=== PATIENT | female | born 1985 | race Caucasian/White ===

== ENCOUNTER → 2017-04-20 | Outpatient (CLI) | payer OTHER ==
[~2017-04-20] MED LIST: AMOXPOW3; PRENTAB26 PO
[2017-04-20 11:56] LABS: BASO % 0.3 %; BASO ABS # 0.02 K/uL (0-0.2); EOS % 1.1 %; EOS ABS # 0.08 K/uL (0-0.5); HEMATOCRIT 40.4 % (37-47); IG# 0.01 K/uL (0.00-0.02); LYMPH % 34.2 %; LYMPH ABS # 2.49 K/uL (1.2-3.4); MEAN CORPUSCULAR HEMOGLOBIN 31.5 pg (25-34); MEAN CORPUSCULAR HGB CONC 34.7 g/dl (32-36); MEAN PLATELET VOLUME 9.9 fL (7.4-10.4); MONO % 4.8 %; MONO ABS # 0.35 K/uL (0.11-0.59); NEUT % 59.5 %; NEUT ABS # 4.34 K/uL (1.4-6.5); PLATELET COUNT 268 K/uL (130-400); RED CELL DISTRIBUTION WIDTH CV 12.6 % (11.5-14.5); RED CELL DISTRIBUTION WIDTH SD 42.3 fL (36.4-46.3); WHITE BLOOD COUNT 7.29 K/uL (4.8-10.8)
[2017-04-20 12:22] LABS: ALBUMIN 4.1 gm/dl (3.4-5.0); ALT/SGPT 21 U/L (12-78); AST/SGOT 12 U/L (15-37); BLOOD UREA NITROGEN 6 mg/dl (7-18); CALCIUM 9.6 mg/dl (8.5-10.1); CARBON DIOXIDE 25 mmol/L (21-32); CREATININE 0.54 mg/dl (0.60-1.20); GLUCOSE 81 mg/dl (70-99); POTASSIUM 3.6 mmol/L (3.5-5.1); SODIUM 138 mmol/L (136-145)
[2017-04-20 12:24] LABS: ALKALINE PHOSPHATASE 52 U/L (45-117); TOTAL PROTEIN 7.6 gm/dl (6.4-8.2)
[2017-04-27 22:19] LABS: COMPLEMENT C4 TC 44982E 25 MG/DL (16-47); COMPLEMENT TOTAL(CH50)**45328P >60 U/mL (31-60)
== END | disposition home or self-care (01) ==
LOC: C.LAB1850 11:21
PROVIDERS: ATTEND Internal Medicine Pulmonary Disease
DX: L50.9 Urticaria, unspecified (principal)

== ENCOUNTER → 2017-10-05 | Outpatient (CLI) | payer OTHER ==
[2017-10-05 16:06] LABS: HEMATOCRIT 41.1 % (37-47); HEMOGLOBIN 14.4 g/dL (12.0-16.0); MEAN CELL VOLUME 89.7 fL (80-100); MEAN CORPUSCULAR HEMOGLOBIN 31.4 pg (25-34); PLATELET COUNT 212 K/uL (130-400); RED CELL DISTRIBUTION WIDTH CV 12.9 % (11.5-14.5); RED CELL DISTRIBUTION WIDTH SD 42.3 fL (36.4-46.3); WHITE BLOOD COUNT 3.36 K/uL (4.8-10.8)
[2017-10-05 16:40] LABS: ALBUMIN 4.1 gm/dl (3.4-5.0); ALKALINE PHOSPHATASE 78 U/L (45-117); ALT/SGPT 26 U/L (12-78); AST/SGOT 19 U/L (15-37); BLOOD UREA NITROGEN 5 mg/dl (7-18); CALCIUM 9.2 mg/dl (8.5-10.1); CARBON DIOXIDE 25 mmol/L (21-32); CREATININE 0.59 mg/dl (0.60-1.20); GLUCOSE 96 mg/dl (70-99); POTASSIUM 3.9 mmol/L (3.5-5.1); SODIUM 138 mmol/L (136-145); TOTAL PROTEIN 7.7 gm/dl (6.4-8.2)
[2017-10-05 16:46] LABS: MONOSPOT NEG (NEG)
[2017-10-10 15:47] LABS: EBV EARLY ANTIGEN AB < 9.00 U/ML
== END | disposition home or self-care (01) ==
LOC: C.LAB1850 15:33
PROVIDERS: ATTEND Physician Assistant
DX: R53.81 Other malaise (principal); R53.83 Other fatigue

== ENCOUNTER → 2017-10-20 | Outpatient (CLI) | payer OTHER ==
--- NOTE | 2017-10-20 08:49 | DIAGNOSTIC IMAGING REPORT ---
ABDOMEN LIMITED (US) HISTORY: Nodule. Pain. R19.09 Lump in the groinlump in right groin... concern for swoll. COMPARISON: None. FINDINGS: A reducible right inguinal fat-containing hernia. No evidence of bowel containment. IMPRESSION: Reducible right inguinal fat-containing hernia. No evidence of bowel containment. The above report was generated using voice recognition software. It may contain grammatical, syntax or spelling errors. Electronically signed by: Jitendra Malone M.D. 10/20/2017 8:48 AM Dictated Date/Time: 10/20/2017 8:43 AM
== END | disposition home or self-care (01) ==
LOC: C.ULTR 08:04
PROVIDERS: ATTEND Physician Assistant Medical
DX: K40.90 Unilateral inguinal hernia, without obstruction or gangrene, not specified as recurrent (principal)

== ENCOUNTER → 2017-11-01 | Outpatient (CLI) | payer OTHER ==
--- NOTE | 2017-11-01 10:01 | DIAGNOSTIC IMAGING REPORT ---
L-SPINE MIN 4 VIEWS ROUTINE CLINICAL HISTORY: Hip pain. Muscle tenderness. COMPARISON: None FINDINGS: Alignment of the lumbar spine is anatomic. Vertebral body heights are maintained. There is no fracture or suspicious lesion. Disc spaces are preserved. Facet joints are intact. IMPRESSION: Unremarkable lumbar spine radiographs. Electronically signed by: Scott Marina M.D. 11/01/2017 9:59 AM Dictated Date/Time: 11/01/2017 9:59 AM
--- NOTE | 2017-11-01 10:02 | DIAGNOSTIC IMAGING REPORT ---
SI JOINTS 3 OR MORE VIEWS CLINICAL HISTORY: Hip pain. Malaise. Fatigue. Sacroiliitis. COMPARISON STUDY: No previous studies for comparison. FINDINGS: The sacroiliac joints are intact without evidence for ankylosis. No erosions are identified. Joint spaces are preserved. IMPRESSION: Normal radiographic appearance of the sacroiliac joints. Electronically signed by: Scott Marina M.D. 11/01/2017 10:00 AM Dictated Date/Time: 11/01/2017 9:59 AM
[2017-11-04 00:32] LABS: ALDOLASE** TC 66985R 4.8 U/L (0.0-8.1)
== END | disposition home or self-care (01) ==
LOC: C.LAB1850 09:25
PROVIDERS: ATTEND Internal Medicine Rheumatology
DX: R53.81 Other malaise (principal); R53.83 Other fatigue; M79.1 Myalgia; M46.1 Sacroiliitis, not elsewhere classified

== ENCOUNTER → 2017-11-06 | Outpatient (CLI) | payer OTHER ==
--- NOTE | 2017-11-06 18:38 | DIAGNOSTIC IMAGING REPORT ---
SI JOINTS WITHOUT HISTORY: 32 years-old Female MALAISE, FATIGUE, MUSCLE TENDERNESS, SACROILIITIS acute fatigue with muscle tenderness COMPARISON: SI joint radiographs 11/01/2017 TECHNIQUE: Multiplanar multisequence MRI of the SI joints was obtained without the use of IV contrast. FINDINGS: No focal bone marrow edema, acute fracture, subluxation, marrow replacing process or significant degenerative changes. Normal appearance of the bilateral sacroiliac joints without degenerative changes or evidence of sacroiliitis. Imaged lower lumbar spine also appears normal. Imaged bilateral sacroiliac joints appear to be within normal limits. Imaged pelvic musculature morphology and signal appears to be within normal limits. Bladder, uterus and pelvic structures appear unremarkable. No gross abnormality identified on the large [id number] showroom manager localizer images. Follicular changes about the ovaries. Iliac vasculature appears unremarkable. No adenopathy. IMPRESSION: Unremarkable MRI of the bilateral sacroiliac joints without evidence of acute sacroiliitis. The above report was generated using voice recognition software. It may contain grammatical, syntax or spelling errors. Electronically signed by: Alex Vogel M.D. 11/06/2017 6:37 PM Dictated Date/Time: 11/06/2017 6:32 PM
== END | disposition home or self-care (01) ==
LOC: C.MRI 17:37
PROVIDERS: ATTEND Internal Medicine Rheumatology
DX: M46.1 Sacroiliitis, not elsewhere classified (principal); M47.819 Spondylosis without myelopathy or radiculopathy, site unspecified; M79.1 Myalgia; R53.81 Other malaise; R53.83 Other fatigue

== ENCOUNTER 2021-11-09 16:20 | Inpatient (IN) ==
[2021-11-09] MEDS ORDERED: OXYTOCIN 30 UNITS/500 ML BAG IV PRN ×2 (16:42→16:43)
[2021-11-09] MEDS ORDERED: LIDOCAINE 1% LOCAL 20 ML VIAL INFIL PRN (16:42)
[2021-11-09 17:08] LABS: Hematocrit (blood only) 33.5 % (34.1-44.9); Hemoglobin 11.6 g/dl (12.0-16.0); Mean Corpuscular Hemoglobin 32.2 pg (25.0-34.0); Mean Corpuscular Hgb Conc 34.6 g/dL (32.0-36.0); Mean Corpuscular Volume 93.1 fL (80.0-100.0); Mean Platelet Volume 10.4 fL (9.4-12.3); Platelet Count 216 K/uL (130-400); RDW Coefficient of Variation 14.1 % (11.5-14.5); RDW Standard Deviation 47.8 fL (36.4-46.3); White Blood Count 8.77 K/ul (4.8-10.8)
[2021-11-09 17:19] LABS: Creatinine Urine Random 17.3 mg/dl; Protein Creatinine Ratio Urine 9.6 (0-0.2); Total Protein Urine Random 166.2 mg/dl (0-11.9)
[2021-11-09 17:27] LABS: Alanine Aminotransferase 8 U/L (7-52); Albumin Level 2.8 gm/dl (3.4-5.0); Alkaline Phosphatase 84 U/L (34-104); Anion Gap 7 (3-11); Aspartate Aminotransferase 11 U/L (13-39); BUN Creatinine Ratio 11.1 (10-20); Bilirubin,Total 0.2 mg/dl (0.2-1.0); Blood Urea Nitrogen 5 mg/dl (6-23); Calcium 8.7 mg/dl (8.5-10.1); Carbon Dioxide 22 mmol/L (21-32); Chloride 107 mmol/L (98-107); Creatinine Clr Calc Pharmacy 182.9 ml/min; Est GFR (African American) > 150.0 ml/min; Est GFR (Non-African American) 129.8 ml/min; Globulin 2.9 gm/dl (2.5-4.0); Glucose 75 mg/dl (70-99(Fasting)); Potassium 3.6 mmol/L (3.5-5.1); Sodium 136 mmol/L (136-145); Total Protein 5.7 gm/dl (6.0-8.3)
--- NOTE | 2021-11-09 18:16 | History & Physical Report ---
Date of Service November 09, 2021 Assessment & Plan (1) Preeclampsia: Plan: Reviewed BPs and labs with patient - given proteinuria and elevated BPs at a 37+wk gestation, recommend proceed with delivery at this time. Patient is agreeable with this plan. At this time, BPs and labs are not in severe range that would require magnesium, but will plan to continue to closely monitor BP and recheck preeclampsia labs in the morning. Will plan for cervical [place] for cervix ripening and pitocin for induction of labor. She plans for an epidural at some point during labor. Admission and Anticipated Discharge Date Admission Date: November 09, 2021 History of Present Illness Chief Complaint: elevated BP at office Primary Care Provider: NO PCP 36yo @ 37 05/17, presented to office today for LE edema. Office urine protein dip 4+ (had been 2+ previously in this ), and BPs 150s/90s. She was also reporting decreased movement, and had stated she needed to push on her belly to get the baby to move. She was directed to L&D. She denies severe headache, vision changes, N/V, RUQ pain. Has had a cough for about a week, other family members have been sick also, states last week home COVID test was negative. No leaking fluid, vaginal bleeding. Feeling some ctx. +FM now. Allergies Allergy/AdvReac Type Severity Reaction Status Date / Time iodine Allergy Severe Hives Verified 11/09/21 18:03 shrimp Allergy Severe Hives Verified 11/09/21 18:03 Home Medications Medication Instructions Recorded Confirmed Type acetone (urine) test (Ketone Urine #50 ea 04/26/21 11/09/21 Rx Test strips) blood sugar diagnostic (OneTouch #150 ea 04/26/21 11/09/21 Rx Verio test strips) blood-glucose meter (OneTouch #1 ea 04/26/21 11/09/21 Rx Verio Reflect Meter) lancets 33 gauge (OneTouch Delica #150 ea 04/26/21 11/09/21 Rx Plus Lancet) Patient History Medical History (Updated 11/09/21 @ 18:21 by Benita Herrera DO) ADD (attention deficit disorder) Anxiety Attention deficit disorder (ADD) Breast lump in female Depression Depression Facial neuralgia H/O depression, currently Hyperhidrosis Hypermobility arthralgia Mechanical low back pain Right groin hernia Right inguinal hernia Sacroiliitis Unilateral recurrent inguinal hernia without obstruction or gangrene Urticaria Surgical History H/O hernia repair H/O retained foreign body fully removed FROM A FINGER WITH GENERAL OR MAC ANESTHESIA H/O wisdom tooth extraction Family History (Updated 04/07/21 @ 11:04 by Mackenzie TURK RN) Grandmother Family history of diabetes mellitus Myocardial infarction Family/Other Ovarian cancer maternal great grandmother Mother Graves disease High cholesterol Fatty liver disease, nonalcoholic Gestational diabetes Sister Autoimmune disease Other Diabetes Denies family history of Prostate cancer Breast cancer Colorectal cancer Social History Smoking Status: Current every day smoker Tobacco Type: Cigarettes Age Started Using Tobacco: 19; Cigarettes Per Day: 10; Second Hand Exposure: No; Hx Alcohol Use: No Hx Substance Use: No Preferred Language: Bhutanese Communication Ability: Effective Design Sales Consultant Required: No Beliefs That Will Affect Care: None marital status: Legally marital status details: PAUL Cortes (28) [phone] Current Living Situation: Significant Other Current Living Situation Comment: FOB and 3 children. 1 dog. 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 Will re-attempt with placement of houston. Constitutional: WD/WN, vitals as above Respiratory: normal respiratory effort, lungs clear to auscultation no respiratory distress Cardiovascular: Rate/Rhythm: regular rate and regular rhythm Gastrointestinal (Abdomen): Inspection/Auscultation: abdomen normal to inspection Percussion/Palpation: abdomen soft; abdomen nontender Gravid. No s/s chorio or abruption. Skin: no rashes, warm and dry Psychiatric: A+Ox3, euthymic affect Lymphatic: 1+ arthur LE edema Results & Data ([facility]) Vital Signs (Past 12 Hours) Vital Signs Temp Pulse Resp BP Pulse Ox 11/09/21 18:05 87 135/79 11/09/21 17:34 98 H 99 11/09/21 17:29 89 100 11/09/21 17:24 78 100 11/09/21 17:19 82 100 11/09/21 17:11 80 100 11/09/21 17:06 79 100 11/09/21 17:07 77 147/67 H 11/09/21 17:01 78 100 11/09/21 16:20 20 11/09/21 16:20 36.8 C 80 20 119/90 11/09/21 16:56 75 100 11/09/21 16:53 82 146/68 H 11/09/21 16:51 80 100 11/09/21 16:46 85 100 11/09/21 16:41 85 99 11/09/21 16:36 82 99 11/09/21 16:37 79 155/74 H Coding Level of Care Code None Diagnoses Preeclampsia O14.90
[2021-11-09] MEDS: LACTATED RINGER'S 1,000 ML IV PRN (19:58)
--- NOTE | 2021-11-09 20:11 | Labor Progress Brief Note ---
Date of Service November 09, 2021 Subjective [place] bulb placed, tolerated well. 35cc sterile water. FHT Cat 1, occ ctx. Cervix exam still difficult d/t patient's significant discomfort - she is requesting no further cervix exams until after epidural. Suspect cervix is approx /-3. Starting pitocin with [place]. Patient agreeable. Assessment & Plan Admission and Anticipated Discharge Date Admission Date: November 09, 2021 Results & Data ([facility]) Vital Signs (Past 12 Hours) Vital Signs Temp Pulse Resp BP Pulse Ox 11/09/21 19:59 81 135/64 11/09/21 19:09 20 11/09/21 19:09 36.7 C 20 11/09/21 19:08 82 130/65 11/09/21 18:05 87 135/79 11/09/21 17:34 98 H 99 11/09/21 17:29 89 100 11/09/21 17:24 78 100 11/09/21 17:19 82 100 11/09/21 17:11 80 100 11/09/21 17:06 79 100 11/09/21 17:07 77 147/67 H 11/09/21 17:01 78 100 11/09/21 16:20 20 11/09/21 16:20 36.8 C 80 20 119/90 11/09/21 16:56 75 100 11/09/21 16:53 82 146/68 H 11/09/21 16:51 80 100 11/09/21 16:46 85 100 11/09/21 16:41 85 99 11/09/21 16:36 82 99 11/09/21 16:37 79 155/74 H Coding Level of Care Code None
[2021-11-09] MEDS ORDERED: ePHEDrine sulfate 50 MG/ML AMP ONE (21:03)
[2021-11-09] MEDS ORDERED: LIDOCAINE 2%/EPINEPHRINE 1:200,000 20 ML SDV ONE (21:04)
[2021-11-09] MEDS ORDERED: fentaNYL 2MCG/ML ROPIVACAINE 1.25MG/ML 100 ML BAG EPI ONE (21:04)
[2021-11-09] MEDS ORDERED: fentaNYL citrate 100 MCG/2 ML VIAL ONE (21:04)
[2021-11-09] MEDS ORDERED: SODIUM CHLORIDE 0.9% INJ 10 ML VIAL ONE (21:04)
[2021-11-09] MEDS ORDERED: BUPIVACAINE 0.25% 30 ML VIAL ONE ×2 (21:04→23:40)
--- NOTE | 2021-11-09 21:39 | Anesthesiology Consultation ---
Date of Service November 09, 2021 Assessment & Plan (1) Encounter for pre-operative examination: Chart Review Chart Review: Acceptable Risk for Labor Epidural Consults Requested none ASA ASA2 Proposed Anesthesia Anesthesia Type: Labor Epidural Risk / Benefits Reviewed With: PT / POA / Parent / Guardian, Accepts Plan and Informed Consent Obtained History Height/Weight Height: 5 ft 4 in Weight: 83.915 kg Allergies Allergy/AdvReac Type Severity Reaction Status Date / Time iodine Allergy Severe Hives Verified 11/09/21 18:03 shrimp Allergy Severe Hives Verified 11/09/21 18:03 Medications Home Medications Medication Instructions Recorded Confirmed Last Taken acetone (urine) test (Ketone Urine #50 ea 04/26/21 11/09/21 Unknown Test strips) blood sugar diagnostic (OneTouch #150 ea 04/26/21 11/09/21 Unknown Verio test strips) blood-glucose meter (OneTouch #1 ea 04/26/21 11/09/21 Unknown Verio Reflect Meter) lancets 33 gauge (OneTouch Delica #150 ea 04/26/21 11/09/21 Unknown Plus Lancet) Active Medications Generic Name Dose Route Start Last Admin Trade Name Freq PRN Reason Stop Dose Admin Oxytocin 30 units in 500 mls @ 5 mls/hr 11/09/21 16:43 11/09/21 21:00 Pitocin IV 11/11/21 16:42 0.3 units/hr .Q24H PRN 5 mls/hr Labor Induction/Augmentation Titration Protocol 0.3 UNITS/HR Lactated Ringer's 1,000 mls @ 125 mls/hr 11/09/21 16:42 11/09/21 21:25 Lr IV 11/11/21 16:41 125 mls/hr .Q8H PRN Infusion L&D Protocol Protocol Past Medical History Medical History ADD (attention deficit disorder) Anxiety Attention deficit disorder (ADD) Breast lump in female Depression Depression Facial neuralgia H/O depression, currently Hyperhidrosis Hypermobility arthralgia Mechanical low back pain Right groin hernia Right inguinal hernia Sacroiliitis Unilateral recurrent inguinal hernia without obstruction or gangrene Urticaria Exercise / Class Metabolic Activity II 4-5 Yardwork/Stairs/Walk up hill Past Family History Family History Grandmother Family history of diabetes mellitus Myocardial infarction Family/Other Ovarian cancer maternal great grandmother Mother Graves disease High cholesterol Fatty liver disease, nonalcoholic Gestational diabetes Sister Autoimmune disease Other Diabetes Denies family history of Prostate cancer Breast cancer Colorectal cancer Past Surgical History Surgical History H/O hernia repair H/O retained foreign body fully removed FROM A FINGER WITH GENERAL OR MAC ANESTHESIA H/O wisdom tooth extraction Past Anesthesia History No Hx of Anesthesia Complications and No Family Hx of Anesthesia Complications History of PONV No Hx of PONV and No Hx of Motion Sickness Social History Smoking Status: Current every day smoker tobacco type: cigarettes Smoking cigarettes per day: 10 Hx Alcohol Use: No Hx Substance Use: No substance use type: does not use Physical Exam Vital Signs Last Vital Signs Temp 98.1 F 11/09/21 19:09 Pulse 81 11/09/21 21:01 Resp 20 11/09/21 19:09 BP 145/77 H 11/09/21 21:01 Pulse Ox 99 11/09/21 17:34 ENMT Mouth: no dentition abnormality Thyromental Distance: > or= 3.5 Finger Breadths Mallampati Class: II Neck normal visual inspection Respiratory normal respiratory effort Auscultation: lungs clear to auscultation bilaterally Cardiovascular Rate/Rhythm: regular rate and regular rhythm Testing Laboratory Results 11/09/21 16:58 11/09/21 16:58 Blood Type A Positive 11/09/21 16:58 Antibody Screen NEGATIVE 11/09/21 16:58
[2021-11-09] MEDS ORDERED: NALOXONE HCL 0.4 MG/1 ML VIAL/CARP IV PRN (22:02)
[2021-11-09] MEDS ORDERED: diphenhydrAMINE 50 MG/ML VIAL IV PRN (22:02)
[2021-11-09] MEDS ORDERED: ONDANSETRON INJ 2 MG/ML 2 ML VIAL IV PRN (22:02)
[2021-11-09] MEDS ORDERED: NALOXONE HCL 1 MG in SODIUM CHLORIDE 0.9% 1000ML 1,000 ML IV PRN (22:02)
[2021-11-09] MEDS ORDERED: ePHEDrine sulfate 50 MG/ML AMP IV PRN (22:02)
[2021-11-09] MEDS ORDERED: NALBUPHINE HCL INJ 10 MG/ML AMP IV PRN (22:02)
--- NOTE | 2021-11-10 00:03 | Communication Note ---
Date of Service: November 10, 2021 Patient stated having more labor paiins R>L. Epidural was withdrawn 1 cm, and the epidural was bolused with 3 mL of 0.25% bupivacaine. The patient stated h aving improved labor pains. VSS throughout.
--- NOTE | 2021-11-10 00:13 | Labor Progress Brief Note ---
Date of Service November 10, 2021 Subjective Comfortable with epidural. FHT Cat 1 [place] Q 2-3 Pitocin at 17 Cervix 4/70/-2 AROM clear fluid. Continue labor. Anticipate . Assessment & Plan Admission and Anticipated Discharge Date Admission Date: November 09, 2021 Results & Data ([facility]) Vital Signs (Past 12 Hours) Vital Signs Temp Pulse Resp BP Pulse Ox 11/10/21 00:10 98 H 98 11/10/21 00:05 91 H 98 11/10/21 00:00 98 11/10/21 00:00 86 11/10/21 00:00 87 122/60 11/09/21 23:58 87 134/61 11/09/21 23:55 90 98 11/09/21 23:56 89 139/65 11/09/21 23:54 81 129/60 11/09/21 23:52 85 134/62 11/09/21 23:50 89 129/60 98 11/09/21 23:45 90 98 11/09/21 23:44 88 142/67 H 11/09/21 23:40 89 98 11/09/21 23:35 99 11/09/21 23:35 90 11/09/21 23:35 87 142/63 H 11/09/21 23:30 20 11/09/21 23:30 95 H 20 179/72 H 97 11/09/21 23:25 87 99 11/09/21 23:20 89 97 11/09/21 22:01 18 11/09/21 22:01 18 11/09/21 22:25 20 11/09/21 22:25 20 11/09/21 23:15 86 131/59 L 98 11/09/21 23:10 87 98 11/09/21 23:00 18 11/09/21 23:00 36.7 C 18 11/09/21 23:05 88 98 11/09/21 23:00 98 11/09/21 23:00 90 11/09/21 23:00 85 138/61 11/09/21 22:55 84 98 11/09/21 22:50 88 98 11/09/21 22:45 85 125/58 L 98 11/09/21 22:40 85 98 11/09/21 22:35 85 98 11/09/21 22:30 86 18 98 11/09/21 22:29 81 135/61 11/09/21 22:25 98 11/09/21 22:25 89 11/09/21 22:25 81 134/60 11/09/21 22:20 92 H 20 98 11/09/21 22:19 83 146/64 H 11/09/21 22:15 87 20 98 11/09/21 22:13 85 142/62 H 11/09/21 22:10 85 18 98 11/09/21 22:08 85 132/59 L 11/09/21 22:06 82 130/59 L 11/09/21 22:05 88 18 99 11/09/21 22:04 80 126/59 L 11/09/21 22:02 85 134/61 11/09/21 22:00 91 H 150/70 H 99 11/09/21 21:58 75 107/67 11/09/21 21:55 83 99 11/09/21 21:50 86 99 11/09/21 21:45 85 98 11/09/21 21:40 86 99 11/09/21 21:01 81 145/77 H 11/09/21 19:59 81 135/64 11/09/21 19:09 20 11/09/21 19:09 36.7 C 20 11/09/21 19:08 82 130/65 11/09/21 18:05 87 135/79 11/09/21 17:34 98 H 99 11/09/21 17:29 89 100 11/09/21 17:24 78 100 11/09/21 17:19 82 100 11/09/21 17:11 80 100 11/09/21 17:06 79 100 11/09/21 17:07 77 147/67 H 11/09/21 17:01 78 100 11/09/21 16:20 20 11/09/21 16:20 36.8 C 80 20 119/90 11/09/21 16:56 75 100 11/09/21 16:53 82 146/68 H 11/09/21 16:51 80 100 11/09/21 16:46 85 100 11/09/21 16:41 85 99 11/09/21 16:36 82 99 11/09/21 16:37 79 155/74 H Coding Level of Care Code None
[2021-11-10] MEDS ORDERED: NURSING L&D Epidural Breakthrough Pain Update ONE (00:31)
[2021-11-10] MEDS: LACTATED RINGER'S 1,000 ML IV PRN (01:07)
[2021-11-10] MEDS: fentaNYL 2MCG/ML ROPIVACAINE 1.25MG/ML 100 ML BAG EPI PRN ×2 (03:20→08:41)
[2021-11-10] MEDS ORDERED: COUGH DROP (SUGAR FREE) LOZ 24 LOZ/1 BOX BUCCAL ONE (05:55)
[2021-11-10 05:56] LABS: Hematocrit (blood only) 32.5 % (34.1-44.9); Hemoglobin 11.1 g/dl (12.0-16.0); Mean Corpuscular Hemoglobin 31.8 pg (25.0-34.0); Mean Corpuscular Hgb Conc 34.2 g/dL (32.0-36.0); Mean Corpuscular Volume 93.1 fL (80.0-100.0); Mean Platelet Volume 10.4 fL (9.4-12.3); Platelet Count 200 K/uL (130-400); RDW Coefficient of Variation 14.2 % (11.5-14.5); Red Blood Count 3.49 M/uL (3.93-5.22); White Blood Count 13.82 K/ul (4.8-10.8)
[2021-11-10 06:20] LABS: Alanine Aminotransferase 7 U/L (7-52); Albumin Level 2.6 gm/dl (3.4-5.0); Alkaline Phosphatase 76 U/L (34-104); Anion Gap 7 (3-11); Aspartate Aminotransferase 10 U/L (13-39); BUN Creatinine Ratio 11.9 (10-20); Bilirubin,Total 0.2 mg/dl (0.2-1.0); Blood Urea Nitrogen 5 mg/dl (6-23); Calcium 8.2 mg/dl (8.5-10.1); Carbon Dioxide 20 mmol/L (21-32); Chloride 108 mmol/L (98-107); Creatinine Clr Calc Pharmacy 195.9 ml/min; Est GFR (African American) > 150.0 ml/min; Est GFR (Non-African American) 132.8 ml/min; Globulin 2.5 gm/dl (2.5-4.0); Glucose 82 mg/dl (70-99(Fasting)); Potassium 3.6 mmol/L (3.5-5.1); Sodium 135 mmol/L (136-145); Total Protein 5.1 gm/dl (6.0-8.3)
--- NOTE | 2021-11-10 07:23 | Labor Progress Brief Note ---
Date of Service November 10, 2021 Subjective Uncomfortable with ctx - asking for epidural redose. Cervix check 6-7/80/-2, much more anterior than previously per RN exam FHT Cat 1 [place] Q 2-3 Pit @ 20 Continue labor, will ask anesthesia to help with better pain control. Assessment & Plan Admission and Anticipated Discharge Date Admission Date: November 09, 2021 Results & Data [facility]) Vital Signs (Past 12 Hours) Vital Signs Temp Pulse Resp BP Pulse Ox 11/10/21 07:15 97 H 98 11/10/21 07:10 86 99 11/10/21 07:11 86 156/73 H 11/10/21 07:05 83 98 11/10/21 07:00 83 99 11/10/21 06:56 86 149/81 H 11/10/21 06:55 86 99 11/10/21 06:50 96 H 98 11/10/21 06:45 107 H 98 11/10/21 06:40 88 142/66 H 99 11/10/21 06:35 90 99 11/10/21 06:30 90 18 98 11/10/21 06:26 90 136/72 11/10/21 06:25 87 98 11/10/21 06:20 92 H 98 11/10/21 06:15 87 98 11/10/21 06:10 100 H 145/73 H 98 11/10/21 06:05 85 97 11/10/21 06:00 37.1 C 89 18 96 11/10/21 05:56 85 132/71 11/10/21 05:55 87 98 11/10/21 05:50 93 H 99 11/10/21 05:45 87 98 11/10/21 05:40 93 H 146/69 H 99 11/10/21 05:35 81 98 11/10/21 05:30 93 H 18 99 11/10/21 05:26 87 139/72 11/10/21 05:25 89 98 11/10/21 05:20 104 H 100 11/10/21 05:15 96 H 99 11/10/21 05:10 90 99 11/10/21 05:11 88 135/83 11/10/21 05:05 83 99 11/10/21 05:00 93 H 18 99 11/10/21 04:55 85 127/67 98 11/10/21 04:50 95 H 99 11/10/21 04:45 92 H 99 11/10/21 04:42 90 137/79 11/10/21 04:40 91 H 99 11/10/21 04:35 90 99 11/10/21 04:30 90 18 98 11/10/21 04:27 102 H 148/82 H 11/10/21 04:25 89 99 11/10/21 04:20 97 H 99 11/10/21 04:15 91 H 99 11/10/21 04:10 85 142/64 H 99 11/10/21 04:05 85 98 11/10/21 04:00 93 H 18 99 11/10/21 03:55 82 99 11/10/21 03:56 82 147/67 H 11/10/21 03:50 86 99 11/10/21 03:45 87 99 11/10/21 03:40 82 99 11/10/21 03:35 92 H 99 11/10/21 03:30 36.9 C 86 18 99 11/10/21 03:27 89 158/72 H 11/10/21 03:25 83 99 11/10/21 03:20 87 99 11/10/21 03:15 88 99 11/10/21 03:11 84 138/80 11/10/21 03:10 83 99 11/10/21 03:05 85 99 11/10/21 03:00 88 99 11/10/21 02:56 87 140/76 11/10/21 02:55 90 99 11/10/21 02:50 76 98 11/10/21 02:45 87 99 11/10/21 02:42 81 132/70 11/10/21 02:40 80 98 11/10/21 02:35 80 99 11/10/21 02:30 85 18 99 11/10/21 02:26 78 141/71 H 11/10/21 02:25 83 99 11/10/21 02:20 85 98 11/10/21 02:15 84 98 11/10/21 02:10 87 145/67 H 98 11/10/21 02:05 91 H 98 11/10/21 02:00 37.1 C 90 18 99 11/10/21 01:57 87 128/62 11/10/21 01:55 85 99 11/10/21 01:50 89 99 11/10/21 01:45 93 H 98 11/10/21 01:43 85 150/74 H 11/10/21 01:40 86 99 11/10/21 01:41 83 147/70 H 11/10/21 01:35 90 98 11/10/21 01:32 96 H 177/77 H 11/10/21 01:30 88 99 11/10/21 01:25 85 99 11/10/21 01:20 89 99 11/10/21 01:15 86 146/73 H 98 11/10/21 01:13 83 144/81 H 11/10/21 01:10 86 98 11/10/21 01:11 90 141/81 H 11/10/21 01:09 88 133/74 11/10/21 01:07 86 137/74 11/10/21 01:05 87 98 11/10/21 01:03 91 H 136/78 11/10/21 01:01 88 160/80 H 11/10/21 01:00 92 H 18 98 11/10/21 00:55 93 H 98 11/10/21 00:50 92 H 99 11/10/21 00:45 94 H 137/68 99 11/10/21 00:40 90 98 11/10/21 00:35 90 99 11/10/21 00:31 87 130/66 11/10/21 00:30 18 11/10/21 00:30 97 H 18 99 11/10/21 00:00 18 11/10/21 00:00 18 11/10/21 00:25 91 H 98 11/10/21 00:20 36.9 C 93 H 99 11/10/21 00:17 84 139/66 11/10/21 00:15 90 98 11/10/21 00:10 98 H 98 11/10/21 00:05 91 H 98 11/10/21 00:00 98 11/10/21 00:00 86 11/10/21 00:00 87 122/60 11/09/21 23:58 87 134/61 11/09/21 23:55 90 98 11/09/21 23:56 89 139/65 11/09/21 23:54 81 129/60 11/09/21 23:52 85 134/62 11/09/21 23:50 89 129/60 98 11/09/21 23:45 90 98 11/09/21 23:44 88 142/67 H 11/09/21 23:40 89 98 11/09/21 23:35 99 11/09/21 23:35 90 11/09/21 23:35 87 142/63 H 11/09/21 23:30 20 11/09/21 23:30 95 H 20 179/72 H 97 11/09/21 23:25 87 99 11/09/21 23:20 89 97 11/09/21 22:01 18 11/09/21 22:01 18 11/09/21 22:25 20 11/09/21 22:25 20 11/09/21 23:15 86 131/59 L 98 11/09/21 23:10 87 98 11/09/21 23:00 18 11/09/21 23:00 36.7 C 18 11/09/21 23:05 88 98 11/09/21 23:00 98 11/09/21 23:00 90 11/09/21 23:00 85 138/61 11/09/21 22:55 84 98 11/09/21 22:50 88 98 11/09/21 22:45 85 125/58 L 98 11/09/21 22:40 85 98 11/09/21 22:35 85 98 11/09/21 22:30 86 18 98 11/09/21 22:29 81 135/61 11/09/21 22:25 98 11/09/21 22:25 89 11/09/21 22:25 81 134/60 11/09/21 22:20 92 H 20 98 11/09/21 22:19 83 146/64 H 11/09/21 22:15 87 20 98 11/09/21 22:13 85 142/62 H 11/09/21 22:10 85 18 98 11/09/21 22:08 85 132/59 L 11/09/21 22:06 82 130/59 L 11/09/21 22:05 88 18 99 11/09/21 22:04 80 126/59 L 11/09/21 22:02 85 134/61 11/09/21 22:00 91 H 150/70 H 99 11/09/21 21:58 75 107/67 11/09/21 21:55 83 99 11/09/21 21:50 86 99 11/09/21 21:45 85 98 11/09/21 21:40 86 99 11/09/21 21:01 81 145/77 H 11/09/21 19:59 81 135/64 Coding Level of Care Code None
[2021-11-10] MEDS ORDERED: SODIUM CHLORIDE 0.9% INJ 10 ML VIAL ONE (07:30)
[2021-11-10] MEDS ORDERED: fentaNYL citrate 100 MCG/2 ML VIAL ONE (07:30)
[2021-11-10] MEDS ORDERED: BUPIVACAINE 0.25% 30 ML VIAL ONE (07:31)
--- NOTE | 2021-11-10 07:40 | Communication Note ---
Date of Service: November 10, 2021 Called to bedside due to continued R sided pain. Patient with level of L1 on R, T12 on L to cold sensation. Plan to bolus 10 ml 0.125 Bupiv and 100 mcg fen tanyl, increase pump to 12 ml/hr.
--- NOTE | 2021-11-10 09:30 | Labor Progress Brief Note ---
Date of Service November 10, 2021 Subjective denies pain Assessment & Plan (1) Preeclampsia: Plan: denies connelly or visual change. (2) Gestational diabetes mellitus (GDM) affecting , antepartum: Plan: getting glucoses checked. Plan progressing with labor but not ready for 2nd stage. early decels mostly noted, occas variable. will reeval cx in about 1hr. patient aware i am taking over OB care. Admission and Anticipated Discharge Date Admission Date: November 09, 2021 Physical Exam Constitutional: WD/WN, vitals as above Genitourinary: Manual OB Exam: + cervical dilation 9 cm (thick area on ant cervix), + cervical effacement 90% and + station 0 OB Exam Monitor Tracing: + external FHT monitor used, + external uterine monitor used (q2. pit at 20), + category II, + normal FHT variability, + early decelerations present and + variable decelerations Results & Data ([facility]) Vital Signs (Past 12 Hours) Vital Signs Temp Pulse Resp BP Pulse Ox O2 Del Method 11/10/21 08:00 98.2 F 20 Room Air 11/10/21 09:25 89 99 11/10/21 09:20 88 99 11/10/21 09:15 84 99 11/10/21 09:11 85 139/69 11/10/21 09:10 96 H 99 11/10/21 09:05 83 97 11/10/21 09:00 89 99 11/10/21 08:56 83 142/69 H 11/10/21 08:55 92 H 100 11/10/21 08:50 81 98 11/10/21 08:45 85 99 11/10/21 08:42 83 138/74 11/10/21 08:40 91 H 99 11/10/21 08:35 83 99 11/10/21 08:30 95 H 99 11/10/21 08:25 81 141/71 H 99 11/10/21 08:20 83 99 11/10/21 08:15 90 98 11/10/21 08:10 84 99 11/10/21 08:11 92 H 145/87 H 11/10/21 08:05 88 99 11/10/21 08:00 87 99 11/10/21 07:55 87 98 11/10/21 07:56 87 137/78 11/10/21 07:50 97 H 98 11/10/21 07:45 93 H 99 11/10/21 07:40 87 153/85 H 98 11/10/21 07:36 85 152/82 H 11/10/21 07:35 88 99 11/10/21 07:30 94 H 99 11/10/21 07:27 93 H 157/88 H 11/10/21 07:25 93 H 99 11/10/21 07:20 92 H 98 11/10/21 07:15 97 H 98 11/10/21 07:10 86 99 11/10/21 07:11 86 156/73 H 11/10/21 07:05 83 98 11/10/21 07:00 83 99 11/10/21 06:56 86 149/81 H 11/10/21 06:55 86 99 11/10/21 06:50 96 H 98 11/10/21 06:45 107 H 98 11/10/21 06:40 88 142/66 H 99 11/10/21 06:35 90 99 11/10/21 06:30 90 18 98 11/10/21 06:26 90 136/72 11/10/21 06:25 87 98 11/10/21 06:20 92 H 98 11/10/21 06:15 87 98 11/10/21 06:10 100 H 145/73 H 98 11/10/21 06:05 85 97 11/10/21 06:00 98.8 F 89 18 96 11/10/21 05:56 85 132/71 11/10/21 05:55 87 98 11/10/21 05:50 93 H 99 11/10/21 05:45 87 98 11/10/21 05:40 93 H 146/69 H 99 11/10/21 05:35 81 98 11/10/21 05:30 93 H 18 99 11/10/21 05:26 87 139/72 11/10/21 05:25 89 98 11/10/21 05:20 104 H 100 11/10/21 05:15 96 H 99 11/10/21 05:10 90 99 11/10/21 05:11 88 135/83 11/10/21 05:05 83 99 11/10/21 05:00 93 H 18 99 11/10/21 04:55 85 127/67 98 11/10/21 04:50 95 H 99 11/10/21 04:45 92 H 99 11/10/21 04:42 90 137/79 11/10/21 04:40 91 H 99 11/10/21 04:35 90 99 11/10/21 04:30 90 18 98 11/10/21 04:27 102 H 148/82 H 11/10/21 04:25 89 99 11/10/21 04:20 97 H 99 11/10/21 04:15 91 H 99 11/10/21 04:10 85 142/64 H 99 11/10/21 04:05 85 98 11/10/21 04:00 93 H 18 99 11/10/21 03:55 82 99 11/10/21 03:56 82 147/67 H 11/10/21 03:50 86 99 11/10/21 03:45 87 99 11/10/21 03:40 82 99 11/10/21 03:35 92 H 99 11/10/21 03:30 98.4 F 86 18 99 11/10/21 03:27 89 158/72 H 11/10/21 03:25 83 99 11/10/21 03:20 87 99 11/10/21 03:15 88 99 11/10/21 03:11 84 138/80 11/10/21 03:10 83 99 11/10/21 03:05 85 99 11/10/21 03:00 88 99 11/10/21 02:56 87 140/76 11/10/21 02:55 90 99 11/10/21 02:50 76 98 11/10/21 02:45 87 99 11/10/21 02:42 81 132/70 11/10/21 02:40 80 98 11/10/21 02:35 80 99 11/10/21 02:30 85 18 99 11/10/21 02:26 78 141/71 H 11/10/21 02:25 83 99 11/10/21 02:20 85 98 11/10/21 02:15 84 98 11/10/21 02:10 87 145/67 H 98 11/10/21 02:05 91 H 98 11/10/21 02:00 98.8 F 90 18 99 11/10/21 01:57 87 128/62 11/10/21 01:55 85 99 11/10/21 01:50 89 99 11/10/21 01:45 93 H 98 11/10/21 01:43 85 150/74 H 11/10/21 01:40 86 99 11/10/21 01:41 83 147/70 H 11/10/21 01:35 90 98 11/10/21 01:32 96 H 177/77 H 11/10/21 01:30 88 99 11/10/21 01:25 85 99 11/10/21 01:20 89 99 11/10/21 01:15 86 146/73 H 98 11/10/21 01:13 83 144/81 H 11/10/21 01:10 86 98 11/10/21 01:11 90 141/81 H 11/10/21 01:09 88 133/74 11/10/21 01:07 86 137/74 11/10/21 01:05 87 98 11/10/21 01:03 91 H 136/78 11/10/21 01:01 88 160/80 H 11/10/21 01:00 92 H 18 98 11/10/21 00:55 93 H 98 11/10/21 00:50 92 H 99 11/10/21 00:45 94 H 137/68 99 11/10/21 00:40 90 98 11/10/21 00:35 90 99 11/10/21 00:31 87 130/66 11/10/21 00:30 18 11/10/21 00:30 97 H 18 99 11/10/21 00:00 18 11/10/21 00:00 18 11/10/21 00:25 91 H 98 11/10/21 00:20 98.4 F 93 H 99 11/10/21 00:17 84 139/66 11/10/21 00:15 90 98 11/10/21 00:10 98 H 98 11/10/21 00:05 91 H 98 11/10/21 00:00 98 11/10/21 00:00 86 11/10/21 00:00 87 122/60 11/09/21 23:58 87 134/61 11/09/21 23:55 90 98 11/09/21 23:56 89 139/65 11/09/21 23:54 81 129/60 11/09/21 23:52 85 134/62 11/09/21 23:50 89 129/60 98 11/09/21 23:45 90 98 11/09/21 23:44 88 142/67 H 11/09/21 23:40 89 98 11/09/21 23:35 99 11/09/21 23:35 90 11/09/21 23:35 87 142/63 H 11/09/21 23:30 20 11/09/21 23:30 95 H 20 179/72 H 97 11/09/21 23:25 87 99 11/09/21 23:20 89 97 11/09/21 22:01 18 11/09/21 22:01 18 11/09/21 22:25 20 11/09/21 22:25 20 11/09/21 23:15 86 131/59 L 98 11/09/21 23:10 87 98 11/09/21 23:00 18 11/09/21 23:00 98.1 F 18 11/09/21 23:05 88 98 11/09/21 23:00 98 11/09/21 23:00 90 11/09/21 23:00 85 138/61 11/09/21 22:55 84 98 11/09/21 22:50 88 98 11/09/21 22:45 85 125/58 L 98 11/09/21 22:40 85 98 11/09/21 22:35 85 98 11/09/21 22:30 86 18 98 11/09/21 22:29 81 135/61 11/09/21 22:25 98 11/09/21 22:25 89 11/09/21 22:25 81 134/60 11/09/21 22:20 92 H 20 98 11/09/21 22:19 83 146/64 H 11/09/21 22:15 87 20 98 11/09/21 22:13 85 142/62 H 11/09/21 22:10 85 18 98 11/09/21 22:08 85 132/59 L 11/09/21 22:06 82 130/59 L 11/09/21 22:05 88 18 99 11/09/21 22:04 80 126/59 L 11/09/21 22:02 85 134/61 11/09/21 22:00 91 H 150/70 H 99 11/09/21 21:58 75 107/67 11/09/21 21:55 83 99 11/09/21 21:50 86 99 11/09/21 21:45 85 98 11/09/21 21:40 86 99 Coding Level of Care Code None Diagnoses Preeclampsia O14.90 Gestational diabetes mellitus (GDM) affecting , antepartum O24.419
[2021-11-10] MEDS ORDERED: PSEUDOEPHEDRINE HCL 30 MG TAB PO PRN (11:07)
[2021-11-10] MEDS ORDERED: DIPHTHERIA/TETANUS/PERTUSSIS 0.5 ML SYR/VIAL IM ONE (11:07)
[2021-11-10] MEDS ORDERED: HYDROCORTISONE ACETATE 25 MG SUPP PR PRN (11:07)
[2021-11-10] MEDS ORDERED: BENZOCAINE 20% AER SPR 82.5 GM CAN EXT PRN (11:07)
[2021-11-10] MEDS ORDERED: ACETAMINOPHEN 325 MG TAB PO PRN (11:07)
[2021-11-10] MEDS ORDERED: OXYTOCIN 30 UNITS/500 ML BAG IV PRN (11:07)
--- NOTE | 2021-11-10 11:09 | Delivery Summary ---
Vaginal Delivery Summary Date of Service November 10, 2021 Vaginal Delivery Summary and 2nd Degree LAC The patient dilated to complete and pushed to deliver a viable male infant Apgars 8 and 9 via over 2nd degree perineal laceration. Mouth and nose bulb suctioned at perineum. Shoulders and body delivered with ease. Infant was vigorous and crying at . Cord clamped at 30 seconds of life and infant to maternal abdomen where the cord was then doubly clamped and cut. Placenta delivered spontaneously and intact, three-vessel cord. Hemostasis achieved with dilute pitocin and uterine massage. Laceration repaired in routine fashion with 3-0 vicryl. Cervix and sulci intact. EBL 300 cc. Mother and baby stable in recovery. [facility] Vaginal Delivery Charge Delivery Type Details: and 2nd Degree LAC
[2021-11-10] MEDS ORDERED: OXYTOCIN 20 UNITS in LACTATED RINGER'S 1,000 ML IV SCH (11:15)
--- NOTE | 2021-11-10 11:39 | Anesthesia Procedure Note ---
Date of Service November 10, 2021 Anesthesia Post Epidural Note Vital Signs Vital Signs: Temp Pulse Resp BP Pulse Ox O2 Del Method 98.2 F 112 H 20 165/79 H 99 11/10/21 09:24 11/10/21 11:37 11/10/21 09:24 11/10/21 11:37 11/10/21 10:50 11/10/21 08:00 Pain Intensity Bilateral Abdomen: Pain Intensity: 8 Notes Mental Status: alert / awake / arousable and participated in evaluation Nausea / Vomiting: adequately controlled Pain: adequately controlled Airway Patency, RR, SpO2: stable & adequate BP & HR: stable & adequate Hydration State: stable & adequate Neuraxial Anesthesia: was administered and sensory block is resolving Anesthetic Complications: no major complications apparent and Pt Satisfied with anesthetic care Epidural: Removed without complications and With tip intact
[2021-11-10] MEDS: IBUPROFEN 600 MG TAB PO PRN ×2 (12:49→21:08)
[2021-11-10] MEDS: DOCUSATE SODIUM 100 MG CAP PO SCH (21:09)
[2021-11-10] MEDS: oxyCODONE/ACETAMINOPHEN 5mg/325mg TAB PO PRN (21:30)
[2021-11-11] MEDS: IBUPROFEN 600 MG TAB PO PRN ×3 (02:26→13:48)
[2021-11-11] MEDS: oxyCODONE/ACETAMINOPHEN 5mg/325mg TAB PO PRN (02:27)
--- NOTE | 2021-11-11 07:08 | Obstetrical Progress Note ---
Date of Service <Chelle Tomas MD - Last Filed: 11/11/21 08:04> November 11, 2021 Assessment & Plan <Chelle Tomas MD - Last Filed: 11/11/21 08:04> (1) Preeclampsia: (2) Encounter for care and examination after delivery: Plan PPD1 - PNC c/b GDM and pre-eclampsia without severe features BPs - SBP- 133-159 DBP - 61-108, most recently 130s/70-80s. No headache, vision changes, or RUQ pain Satisfactory progress Encourage ambulation f/u 6 weeks <Anu Duffy MD, FACOG - Last Filed: 11/11/21 08:11> (1) Preeclampsia: (2) Encounter for care and examination after delivery: Day #:: 1 Subjective <Chelle Tomas MD - Last Filed: 11/11/21 08:04> Ambulation: ambulating normally Voiding: no voiding problems Passing Gas:: Yes Diet Tolerance:: regular diet Lochia:: Small Feeding Type:: breast feeding <Anu Duffy MD, FACOG - Last Filed: 11/11/21 08:11> denies complaints. bps have been ok,some in mild range. Physical Exam <Chelle Tomas MD - Last Filed: 11/11/21 08:04> Constitutional WD/WN, vitals as above Respiratory normal respiratory effort, lungs clear to auscultation Cardiovascular RRR, no murmur, no edema no calf tenderness Gastrointestinal (Abdomen) uterine fundus firm at the level of the umbilicus Psychiatric A+Ox3, euthymic affect Results & Data ([facility]) <Chelle Tomas MD - Last Filed: 11/11/21 08:04> Vital Signs (Past 12 Hours) Vital Signs Temp Pulse Resp BP Pulse Ox O2 Del Method 11/11/21 03:05 36.8 C 79 18 136/78 Room Air 11/11/21 00:45 Room Air 11/11/21 00:45 36.6 C 77 18 136/84 99 Room Air 11/10/21 20:40 37.0 C 87 20 134/84 99 Room Air <Anu Duffy MD, FACOG - Last Filed: 11/11/21 08:11> Co-Signing Physician Notes Resident Physician Supervision Note: I was present with Dr. Tomas during the history and exam. I discussed the case with the resident and agree with the findings and plan as documented in the note. Any exceptions or clarifications are listed here: stable doing well, , tolerating po, voiding ambulating without prob. no connelly or visual change. still with swelling. abd soft ff 2 down. ext +1 edema, nt calves. ppd#1 s/p . doing well, bps mild range at most, plan dc home later today, instructions reviewed, parameters to call reviewed. plan 6wk pp check. rhpos, ri, . Documented By: Anu Duffy MD, FACOG Resident Activity Tracking <Chelle Tomas MD - Last Filed: 11/11/21 08:04> Resident Involvement: Resident Care Provided Care Provided: Adult Hospital Medicine
[2021-11-11] MEDS ORDERED: PRENATAL VITAMIN 1 TAB PO SCH (08:00)
[2021-11-11] MEDS: DOCUSATE SODIUM 100 MG CAP PO SCH (09:16)
== END 2021-11-11 14:19 | disposition home or self-care (01) | DRG 807 ==
LOC: OPB 16:20 → 4S1 16:22 → 4E2 11-10 14:34

== ENCOUNTER 2021-11-12 14:45 | Inpatient (IN) ==
[2021-11-12] MEDS ORDERED: LIDOCAINE 1% LOCAL 20 ML VIAL INFIL PRN (19:01)
[2021-11-12] MEDS ORDERED: MAGNESIUM SULFATE / WTR 40 GM/1,000 ML BAG IV SCH (19:15)
[2021-11-12] MEDS: LACTATED RINGER'S 1,000 ML IV PRN (19:24)
--- NOTE | 2021-11-12 19:36 | History & Physical Report ---
Date of Service November 12, 2021 Assessment & Plan (1) Severe pre-eclampsia with complication: Plan: eLdy is a 36-year-old proximal 3-4 days to as post vaginal delivery presents for admission secondary to severe preeclampsia as detailed above. Will continue magnesium per protocol. Will continue monitor blood pressures which are currently mild range. Will treat as needed. Discussed the diagnosis And treatment course with patient today. Admission and Anticipated Discharge Date Admission Date: November 12, 2021 History of Present Illness Primary Care Provider: NO PCP Ledy is a 36-year-old approximately 3-4 days status post vaginal delivery. presents to emergency department after being seen in clinic for elevated blood pressures, intermittent headaches and floaters. Patient denies any upper abdominal pain. In the ED patient was noted have severe range blood pressures and was treated with labetalol 15 mg IV she was also started on IV magnesium. Patient is being mid for severe preeclampsia due to blood pressure criteria. we discussed the diagnosis severe preeclampsia and answered questions patient's satisfaction. preeclampsia labs collected in the ED are normal. Allergies Allergy/AdvReac Type Severity Reaction Status Date / Time iodine Allergy Severe Hives Verified 11/12/21 12:22 shrimp Allergy Severe Hives Verified 11/12/21 12:22 Home Medications Medication Instructions Recorded Confirmed Type No Known Home Medications 11/12/21 11/12/21 History Patient History Medical History ADD (attention deficit disorder) Anxiety Attention deficit disorder (ADD) Breast lump in female Depression Depression Facial neuralgia H/O depression, currently Hyperhidrosis Hypermobility arthralgia Mechanical low back pain Right groin hernia Right inguinal hernia Sacroiliitis Unilateral recurrent inguinal hernia without obstruction or gangrene Urticaria Surgical History H/O hernia repair H/O retained foreign body fully removed FROM A FINGER WITH GENERAL OR MAC ANESTHESIA H/O wisdom tooth extraction Family History Grandmother Family history of diabetes mellitus Myocardial infarction Family/Other Ovarian cancer maternal great grandmother Mother Graves disease High cholesterol Fatty liver disease, nonalcoholic Gestational diabetes Sister Autoimmune disease Other Diabetes Denies family history of Prostate cancer Breast cancer Colorectal cancer Social History Smoking Status: Current every day smoker Tobacco Type: Cigarettes Age Started Using Tobacco: 19; Cigarettes Per Day: 10; Second Hand Exposure: No; Hx Alcohol Use: No Hx Substance Use: No Preferred Language: Turkmen Communication Ability: Effective User Experience Developer Required: No Beliefs That Will Affect Care: None marital status: Legally marital status details: PAUL Cortes (28) [phone] Current Living Situation: Significant Other Current Living Situation Comment: PAUL and 3 children. 1 dog. 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 Feels Safe at Home: Yes Assistive Devices: None Physical Exam Respiratory: normal respiratory effort; no respiratory distress, no labored breathing and no retractions Cardiovascular: Rate/Rhythm: regular rate Gastrointestinal (Abdomen): Percussion/Palpation: abdomen soft; abdomen nontender, no guarding and abdomen not rigid Results & Data ([facility]) Vital Signs (Past 12 Hours) Vital Signs Pulse Resp BP BP Pulse Ox 11/12/21 18:40 18 161/92 H 11/12/21 19:09 91 H 99 11/12/21 19:04 91 H 100 11/12/21 19:03 85 149/69 H 11/12/21 18:59 89 99 Coding Level of Care Code 01184 Initial Inpt Care Lvl 3 Diagnoses Severe pre-eclampsia with complication O14.15
[2021-11-12 19:37] LABS: Hematocrit (blood only) 29.6 % (34.1-44.9); Hemoglobin 10.2 g/dl (12.0-16.0); Mean Corpuscular Hgb Conc 34.5 g/dL (32.0-36.0); Mean Corpuscular Volume 92.8 fL (80.0-100.0); Mean Platelet Volume 10.2 fL (9.4-12.3); Platelet Count 267 K/uL (130-400); RDW Coefficient of Variation 14.1 % (11.5-14.5); RDW Standard Deviation 47.5 fL (36.4-46.3); Red Blood Count 3.19 M/uL (3.93-5.22); White Blood Count 11.72 K/ul (4.8-10.8)
[2021-11-12] MEDS: IBUPROFEN 600 MG TAB PO PRN (20:55)
[2021-11-12] MEDS: ACETAMINOPHEN 325 MG TAB PO PRN (22:35)
[2021-11-13] MEDS: IBUPROFEN 600 MG TAB PO PRN ×3 (03:38→16:22)
[2021-11-13] MEDS: ACETAMINOPHEN 325 MG TAB PO PRN ×4 (07:17→21:01)
[2021-11-13] MEDS: LACTATED RINGER'S 1,000 ML IV PRN (07:48)
[2021-11-13] MEDS ORDERED: POLYETHYLENE (MIRALAX) 17 GM PACK PO PRN (07:57)
--- NOTE | 2021-11-13 08:12 | Obstetrical Progress Note ---
Date of Service November 13, 2021 Assessment & Plan (1) Severe pre-eclampsia with complication: Plan: Ledy Is a 36-year-old readmitted for severe preeclampsia approximately 4 days status post vaginal deliver. Patient continues report mild headache with visual changes denies any other preeclampsia symptoms. Blood pressures have been mostly normal range with an occasional mild range blood pressure since arrival on Labor and delivery from the ED. Patient will be 24 hours on Mag at 2:30 this afternoon. Labs have been normal and Mag level at 4.8 overnight. Discussed plan for Continuation of Mg and recommended she stay overnight for continue blood pressures monitoring to determine need for blood pressure medications outpatient. Patient is not currently on blood pressure medications and has only received 1 dose of IV antihypertensive yesterday afternoon. Admission and Anticipated Discharge Date Admission Date: November 12, 2021 Subjective Ledy is a 36-year-old approximately 4-5 days status post vaginal delivery. Patient has been readmitted for preeclampsia. Patient's blood pressures have been mostly normal ranges since arriving to Labor and delivery from the ED. Patient has moderate urine output. She does continue To report a mild headache with floaters. labs have been normal and magnesium level is 4.8. Recommended continuation of Mg for the full 24 hours which will be around 230 this afternoon. Patient was agreeable. Physical Exam Constitutional: WD/WN, vitals as above Respiratory: normal respiratory effort; no respiratory distress and no labored breathing Gastrointestinal (Abdomen): Inspection/Auscultation: abdomen normal to inspection; abdomen not distended Percussion/Palpation: abdomen nontender Genitourinary: OB Exam Abdomen: + fundal height Fundus: + firm and + relation to umbilicus (Below); not tender or not boggy Results & Data ([facility]) Vital Signs (Past 12 Hours) Vital Signs Temp Pulse Resp BP Pulse Ox 11/13/21 02:56 18 11/13/21 05:56 18 11/13/21 08:04 81 96 11/13/21 08:00 78 87 L 11/13/21 07:59 81 100 11/13/21 07:56 75 132/79 11/13/21 07:54 77 97 11/13/21 07:52 74 85 L 11/13/21 07:49 81 97 11/13/21 07:44 79 97 11/13/21 07:39 81 97 11/13/21 07:34 75 97 11/13/21 07:30 80 139/65 11/13/21 07:29 77 98 11/13/21 07:24 87 97 11/13/21 07:19 83 95 11/13/21 07:14 81 96 11/13/21 07:09 79 95 11/13/21 07:04 78 96 11/13/21 06:59 76 96 11/13/21 06:56 80 131/62 11/13/21 06:54 89 95 11/13/21 06:49 78 95 11/13/21 06:44 76 92 11/13/21 06:39 78 93 11/13/21 06:34 71 94 11/13/21 06:33 66 85 L 11/13/21 06:29 78 97 11/13/21 06:26 78 132/72 11/13/21 06:24 82 100 11/13/21 06:19 78 96 11/13/21 06:14 88 L 11/13/21 06:14 86 11/13/21 06:14 85 87 L 11/13/21 06:09 75 96 11/13/21 06:04 82 97 11/13/21 05:59 76 95 11/13/21 05:56 79 18 124/58 L 11/13/21 05:54 77 95 11/13/21 05:49 78 95 11/13/21 05:44 77 95 11/13/21 05:39 75 95 11/13/21 05:34 84 94 11/13/21 05:29 77 94 11/13/21 05:26 78 127/64 11/13/21 05:24 80 95 11/13/21 05:19 78 96 11/13/21 05:14 78 96 11/13/21 05:09 86 94 11/13/21 05:04 88 97 11/13/21 05:03 90 87 L 11/13/21 04:59 88 96 11/13/21 04:56 80 18 135/74 11/13/21 04:54 79 94 11/13/21 04:49 88 97 11/13/21 04:44 78 96 11/13/21 04:39 81 96 11/13/21 04:34 74 96 11/13/21 04:29 84 96 11/13/21 04:26 81 123/63 11/13/21 04:24 83 96 11/13/21 04:19 82 96 11/13/21 04:14 81 96 11/13/21 04:09 79 96 11/13/21 04:04 76 97 11/13/21 03:59 82 96 11/13/21 03:56 80 18 129/59 L 11/13/21 03:54 79 96 11/13/21 03:49 80 96 11/13/21 03:44 84 96 11/13/21 03:39 83 97 11/13/21 03:36 81 123/60 11/13/21 03:34 86 96 11/13/21 03:29 88 93 11/13/21 03:24 84 95 11/13/21 03:19 82 96 11/13/21 03:14 82 98 11/13/21 03:09 87 96 11/13/21 03:04 77 94 11/13/21 02:59 80 96 11/13/21 02:56 37.0 C 75 18 120/58 L 11/13/21 02:54 76 96 11/13/21 02:49 77 96 11/13/21 02:44 79 96 11/13/21 02:39 79 95 11/13/21 02:34 79 95 11/13/21 02:29 80 96 11/13/21 02:26 74 116/58 L 11/13/21 02:24 82 97 11/13/21 02:23 113 H 85 L 11/13/21 02:19 84 96 11/13/21 02:14 85 97 11/13/21 02:09 86 96 11/13/21 02:04 86 97 11/13/21 01:59 84 96 11/13/21 01:56 36.7 C 87 18 125/58 L 11/13/21 01:54 89 98 11/13/21 01:49 80 95 11/13/21 01:46 89 87 L 11/13/21 01:44 88 93 11/13/21 01:42 83 142/64 H 11/13/21 01:39 92 H 94 11/13/21 01:34 82 95 11/13/21 01:29 82 94 11/13/21 01:24 81 95 11/13/21 01:19 80 95 11/13/21 01:14 84 94 11/13/21 01:09 82 93 11/13/21 01:04 84 94 11/13/21 01:05 85 87 L 11/13/21 00:59 82 95 11/13/21 00:56 85 18 110/58 L 11/13/21 00:54 84 95 11/13/21 00:49 88 95 11/13/21 00:44 84 95 11/13/21 00:39 86 95 11/13/21 00:34 85 95 11/13/21 00:29 86 95 11/13/21 00:26 83 109/53 L 11/13/21 00:24 86 96 11/13/21 00:19 87 95 11/13/21 00:14 87 94 11/13/21 00:11 93 H 85 L 11/13/21 00:09 92 H 93 11/12/21 20:56 18 11/12/21 20:56 18 11/13/21 00:04 95 H 95 11/13/21 00:01 100 H 89 L 11/12/21 23:59 101 H 98 11/12/21 23:55 37.0 C 96 H 18 131/60 11/12/21 23:54 92 H 95 11/12/21 23:49 96 H 95 11/12/21 23:44 96 H 93 11/12/21 23:39 97 H 95 11/12/21 23:34 90 97 11/12/21 23:29 95 H 92 11/12/21 23:26 95 H 120/57 L 11/12/21 23:24 94 H 95 11/12/21 23:19 97 H 96 11/12/21 23:14 100 H 94 11/12/21 23:09 98 H 94 11/12/21 23:04 100 H 95 11/12/21 22:59 101 H 96 11/12/21 22:56 100 H 18 130/59 L 11/12/21 22:54 103 H 94 11/12/21 22:49 104 H 95 11/12/21 22:44 96 H 96 11/12/21 22:39 102 H 97 11/12/21 22:34 98 H 97 11/12/21 22:29 101 H 96 11/12/21 22:26 97 H 134/63 11/12/21 22:24 106 H 96 11/12/21 22:19 115 H 94 11/12/21 22:14 101 H 93 11/12/21 22:09 94 H 95 11/12/21 22:04 95 H 95 11/12/21 21:59 93 H 94 11/12/21 21:56 94 H 18 130/60 11/12/21 21:54 97 H 95 11/12/21 21:49 94 H 95 11/12/21 21:44 98 H 95 11/12/21 21:39 89 94 11/12/21 21:34 101 H 96 11/12/21 21:29 92 H 94 11/12/21 21:26 91 H 130/60 11/12/21 21:24 92 H 94 11/12/21 21:19 89 95 11/12/21 21:14 89 95 11/12/21 21:09 87 95 11/12/21 21:04 88 94 11/12/21 20:59 87 95 11/12/21 20:56 90 18 134/66 11/12/21 20:54 95 H 95 11/12/21 20:49 90 96 11/12/21 20:46 85 131/62 11/12/21 20:44 87 96 11/12/21 20:39 86 96 11/12/21 20:34 91 H 96 11/12/21 20:29 90 97 11/12/21 20:24 88 98 11/12/21 20:19 91 H 95 11/12/21 20:16 95 H 87 L 11/12/21 20:14 96 H 97 11/12/21 20:09 88 98 PG Care Time/CCT Total # of Minutes Spent Total Time Spent with Patient: Total time spent is greater than 50% in coordination of care (as documented) at patient's floor/unit and/or counseling patient: Coding Level of Care Code 82062 Subseq Hosp Care Lvl 2 Diagnoses Severe pre-eclampsia with complication O14.15
[2021-11-13] MEDS: DOCUSATE SODIUM 100 MG CAP PO SCH ×2 (10:01→21:02)
[2021-11-13] MEDS ORDERED: LABETALOL HCL IV 5 MG/ML 20ML IV STA (15:13)
[2021-11-13] MEDS ORDERED: LABETALOL HCL 100 MG TAB PO ONE (15:16)
--- NOTE | 2021-11-13 15:23 | Communication Note ---
Date of Service: November 13, 2021 Patient's first pressure off of mag and before even transferring to the floor is 171/81 with repeat 165/75. Her pressures on Mag have been good with highest in 140s/80s. Patient has been on Mag for 24 hours. she continues to be asymptomatic. there is no clinical benefit to keeping Mag on for more than 24 hours. Therefore plan to treat with oral labatolol at this point. Plan to transfer to floor and monitor blood pressure hourly until 9pm. Will continue to monitor closely.
[2021-11-13] MEDS: LABETALOL HCL 100 MG TAB PO SCH (22:00)
--- NOTE | 2021-11-13 22:13 | Obstetrical Progress Note ---
Date of Service November 13, 2021 Assessment & Plan (1) Skin erythema: (2) Left leg pain: Will get doppler of the left extremity to r/o dvt. The erythema seems superficial. ? cellulitis? Will follow. Subjective Patient has just been transferred to the floor. Started labatolol for slightly elevated blood pressures off mag. She notified the nurse on PP that her left inner thigh was warm and red. She notes this has been like this since the day or two after delivery. She notes the area is swollen and slightly painful. She notes her skaggs is uncomfortable. She notes no calf pain. Physical Exam The inner left thigh starting at the inner knee up to almost the groin shows erythema and some swelling. It is warm to the touch. It appears slightly more swollen than the right. Results & Data ([facility]) Vital Signs (Past 12 Hours) Vital Signs Temp Pulse Resp BP Pulse Ox 11/13/21 19:39 18 11/13/21 16:00 36.5 C 16 11/13/21 16:00 16 11/13/21 15:00 16 11/13/21 14:00 16 11/13/21 14:00 16 11/13/21 13:00 16 11/13/21 13:00 16 11/13/21 12:00 16 11/13/21 12:00 16 11/13/21 11:00 16 11/13/21 20:34 72 132/69 11/13/21 19:39 36.7 C 77 18 135/65 11/13/21 18:46 77 132/60 11/13/21 17:30 73 126/59 L 11/13/21 16:30 75 141/78 H 11/13/21 15:05 71 165/75 H 11/13/21 15:00 74 171/81 H 11/13/21 14:50 80 96 11/13/21 14:45 79 96 11/13/21 14:40 75 97 11/13/21 14:39 82 85 L 11/13/21 14:35 81 96 11/13/21 14:30 82 97 11/13/21 14:25 82 97 11/13/21 14:20 83 96 11/13/21 14:17 75 141/67 H 11/13/21 14:15 73 96 11/13/21 14:10 88 95 11/13/21 14:05 83 96 11/13/21 14:00 83 96 11/13/21 13:55 86 96 11/13/21 13:50 78 96 11/13/21 13:45 76 96 11/13/21 13:40 78 97 11/13/21 13:35 83 97 11/13/21 13:30 80 98 11/13/21 13:25 86 96 11/13/21 13:24 82 86 L 11/13/21 13:20 79 96 11/13/21 13:15 78 96 11/13/21 13:10 83 97 11/13/21 13:05 77 97 11/13/21 13:00 75 97 11/13/21 12:55 77 97 11/13/21 12:54 75 146/65 H 11/13/21 12:50 82 93 11/13/21 12:45 80 98 11/13/21 12:40 79 97 11/13/21 12:35 79 100 11/13/21 12:30 80 97 11/13/21 12:25 83 98 11/13/21 12:23 84 86 L 11/13/21 12:20 79 99 11/13/21 12:16 74 160/74 H 11/13/21 12:15 77 96 11/13/21 12:13 77 162/73 H 11/13/21 12:12 86 85 L 11/13/21 12:10 82 94 11/13/21 12:05 68 97 11/13/21 12:00 75 96 11/13/21 11:55 79 96 11/13/21 11:50 74 97 11/13/21 11:48 83 85 L 11/13/21 11:45 76 97 11/13/21 11:40 81 97 11/13/21 11:35 80 96 11/13/21 11:30 80 97 11/13/21 11:27 84 86 L 11/13/21 11:25 80 98 11/13/21 11:20 81 94 11/13/21 11:15 79 96 11/13/21 11:10 76 95 11/13/21 11:05 76 95 11/13/21 11:00 79 96 11/13/21 10:59 75 133/72 11/13/21 10:55 76 96 11/13/21 10:50 77 95 11/13/21 10:45 74 96 11/13/21 10:40 84 95 11/13/21 10:37 79 88 L 11/13/21 10:35 79 94 11/13/21 10:30 83 96 11/13/21 10:25 91 H 95 11/13/21 10:23 88 88 L 11/13/21 10:20 83 95 11/13/21 10:16 79 87 L 11/13/21 10:15 76 96
[2021-11-14] MEDS: cephALEXin 500 MG CAP PO SCH ×4 (01:01→18:15)
[2021-11-14] MEDS: ACETAMINOPHEN 325 MG TAB PO PRN (03:32)
--- NOTE | 2021-11-14 06:45 | Ultrasound Report ---
LEFT LOWER EXTREMITY VENOUS DOPPLER HISTORY: erythema pain , back of left leg, above knee COMPARISON STUDY: None. FINDINGS: There is normal compressibility, flow, and augmentation within the left lower extremity kay p venous system. IMPRESSION: No DVT within the left lower extremity. ACT 112: Negative or not required by law. Electronically signed by: Akshat Bolanos M.D. 11/14/2021 6:43 AM
--- NOTE | 2021-11-14 07:59 | Obstetrical Progress Note ---
Date of Service November 14, 2021 Assessment & Plan (1) Severe pre-eclampsia with complication: (2) Skin erythema: Plan Patient came off mag yesterday afternoon. Pressures have been maintained on labatolol 100mg. Need to watch through the day today. If all looks well, plan d/c home later today, likely after dinner. Routine pp care. Patient currently has no s/s of pet. Her leg is looking better today. Would plan course of keflex for presumed cellulitis of unknown cause. Doppler was negative for DVT. Day #:: 2 Subjective Ambulation: ambulating normally Voiding: no voiding problems Passing Gas:: Yes Diet Tolerance:: regular diet (no n/v) Lochia:: Small Feeding Type:: breast feeding Patient notes a slight connelly behind her right eye. Her doppler last night was negative and was started on keflex for presumed cellulitis of the left leg. She has no s/s of pet. Physical Exam Constitutional WD/WN, vitals as above Respiratory normal respiratory effort, lungs clear to auscultation Cardiovascular RRR, no murmur, no edema Extremities: + edema (+2); no calf tenderness Chest (Breasts) Breast: + breast mass (right upper outer quadrant a 1cm, very round, mobile nt mass) Gastrointestinal (Abdomen) soft, nt, nd ff/nt 1 below u Skin decreased erythema noted of the inner left upper thigh, not spreading, less warm Neurologic patellar DTR's 2+ bilat, sensation intact (no clonus) Results & Data ([facility]) Vital Signs (Past 12 Hours) Vital Signs Temp Pulse Pulse Resp BP BP O2 Del Method 11/14/21 03:39 69 127/79 11/13/21 23:50 36.9 C 73 18 134/83 11/13/21 21:00 36.7 C 77 16 151/83 H Room Air 11/13/21 20:34 72 132/69
[2021-11-14] MEDS: IBUPROFEN 600 MG TAB PO PRN ×3 (08:20→14:04)
[2021-11-14] MEDS: DOCUSATE SODIUM 100 MG CAP PO SCH (08:20)
[2021-11-14] MEDS: LABETALOL HCL 100 MG TAB PO SCH (08:20)
[2021-11-14] MEDS ORDERED: SOD PHOSPHATE/SOD BIPHOSPHATE ENEMA 132 ML BTL PR PRN ×2 (15:03→15:33)
[2021-11-14] MEDS ORDERED: bisacodyL 5 MG TABEC PO ONE (15:36)
--- NOTE | 2021-11-16 18:51 | Discharge Summary (DS) ---
DATE OF ADMISSION: 11/12/2021. DATE OF DISCHARGE: 11/14/2021. ADMITTING DIAGNOSIS: Severe preeclampsia via blood pressure issues. DISCHARGE DIAGNOSIS: Severe preeclampsia via blood pressure issues. HISTORY: The patient is a 36-year-old 3-4 days out from a vaginal delivery, who [facility] for admission secondary to severe preeclampsia. She was seen in the clinic for el evated blood pressures, intermittent headaches and floaters. The patient denies any upper abdominal pain. In the ED, the patient was noted to have severe range blood pressures and was treated with labe talol 50 mg IV and started on IV magnesium. She is being admitted for severe preeclampsia due to blood pressure criteria. For the rest of the patient's detailed history and physical, please see her history and physical. ASSESSMENT: This is a 36-year-old 3-4 days post-vaginal delivery with severe range blood pressures, who presents for treatment for severe preeclampsia. HOSPITAL COURSE: She was started on magnesium sulfate prophylaxis and quickly her pressures decrease d into a more normal range. Her symptoms of mild headache with visual changes improved. Her blood pr essures became mostly in the normal range, with an occasional mild range blood pressure. She was on magnesium sulfate for 24 hours and was discontinued at 2:30 in the afternoon on hospital day 2. Her p ressures did come up slightly after discontinuing the magnesium sulfate, but she did not become more symptomatic, so she was started on labetalol 100 mg b.i.d. Her pressures remained reasonable on the labetalol with mostly blood pressures in the 130s-140s/80s. She did have an occasional 150, but sinc e blood pressures were so good, her symptoms had resolved, it was decided that she could be discharge d home. Of note, all her lab work was completely normal. She will return to the clinic on for a blood pressure check in the office. She was educated on the signs and symptoms of preeclampsia and to call with any concerns or issues. Job ID: [id number]
== END 2021-11-14 18:20 | disposition home or self-care (01) | DRG 776 ==
LOC: 4S1 14:45 → 4E2 11-13 21:35